=== PATIENT | female | born 1980 | race American Indian/Alaskan Native ===

== ENCOUNTER 2019-01-15 19:15 | Emergency (ER) | payer MEDICAID ==
[2019-01-15 19:30] VITALS: BMI 48.6
[2019-01-15 19:32] VITALS: BP 135/91; RESP 18; TEMP 98.5; O2SAT 100
[2019-01-15] MEDS ORDERED: Sodium Chloride 0.9% 1,000 ML IV STA (20:44)
[2019-01-15 21:18] LABS: BASO # 0.01 K/mm3 (0.0-2.0); BASO % 0.1 % (0.0-3.0); EOS % 0.1 % (1.5-5.0); HEMOGLOBIN 9.5 g/dL (12.0-16.0); LYMPH # 2.3 (1.2-3.4); LYMPH % 19.6 % (22.0-35.0); MEAN CELL VOLUME 60.6 fl (80.0-105.0); MEAN CORPUSCULAR HGB CONC 28.1 g/dl (31.0-37.0); MONO # 0.6 (0.1-0.6); MONO % 5.3 % (1.0-6.0); RBC 5.58 10^6/uL (3.5-6.1); RED CELL DISTRIBUTION WIDTH 21.3 % (11.5-14.5); URINE BILIRUBIN MODERATE (NEGATIVE); URINE BLOOD LARGE (NEGATIVE); URINE GLUCOSE (UA) NEGATIVE (NEGATIVE); URINE LEUKOCYTE ESTERASE TRACE Leu/uL (NEGATIVE); URINE PROTEIN 100 mg/dL (<30 mg/dL); WHITE BLOOD COUNT 11.6 10^3/uL (4.5-11.0)
[2019-01-15 21:23] LABS: URINE APPEARANCE CLOUDY (CLEAR)
[2019-01-15 21:28] LABS: ALB/GLOB RATIO 0.9 (1.1-1.8); ALBUMIN 4.4 g/dL (3.0-4.8); AST/SGOT 33 U/L (14-36); BLOOD UREA NITROGEN 18 mg/dL (7-21); CALCIUM 9.7 mg/dL (8.4-10.5); GFR NON-AFRICAN AMERICAN > 60; LIPASE 110 U/L (23-300)
[2019-01-15 21:29] LABS: URINE AMORPHOUS SEDIMENT MODERATE /hpf; URINE BACTERIA TRACE /hpf; URINE RBC TNTC /hpf (0-2)
[2019-01-15 21:39] LABS: TROPONIN I < 0.01 ng/mL
[2019-01-15 21:41] LABS: ALT/SGPT < 6 U/L (7-56)
--- NOTE | 2019-01-15 21:52 | ED PDOC ---
Arrival/HPI - General Chief Complaint: Abdominal Pain Time Seen by Provider: 01/15/19 20:07 Historian: Patient - History of Present Illness Narrative History of Present Illness (Text): 01/15/19 21:50 38-year-old female presents today with epigastric and upper abdominal pain that started 3 days ago. Patient is complaining of nausea vomiting and a sharp achy upper abdominal pain. No diarrhea or constipation. No back pain. No chest pain or shortness of breath. Patient denies fevers or chills. No dizziness or weakness. No urinary symptoms. No flank pain. No medications have been taken at home. No sick contacts. Past Medical History - Provider Review Nursing Documentation Reviewed: Yes - Travel History Have you recently traveled outside [place] w/in the past 3 mons?: No - Cardiac Hx Hypertension: Yes - Pulmonary Hx Asthma: Yes - Endocrine/Metabolic Hx Hyperthyroidism: Yes - Psychiatric Hx Substance Use: No - Surgical History Hx Section: Yes (2) Hx Cholecystectomy: Yes Hx Tonsillectomy: Yes Hx Tubal Ligation: Yes Family/Social History - Physician Review Nursing Documentation Reviewed: Yes Family/Social History: Unknown Family HX Smoking Status: Never Smoked Hx Alcohol Use: Yes Frequency of alcohol use: Socially Hx Substance Use: No Allergies/Home Meds Allergies/Adverse Reactions: Allergies Penicillins Allergy (Verified 01/15/19 19:29) RASH Review of Systems - Review of Systems Constitutional: absent: Fatigue, Fevers Respiratory: absent: SOB, Cough Cardiovascular: absent: Chest Pain, Palpitations Gastrointestinal: Abdominal Pain, Nausea, Vomiting. absent: Constipation, Diarrhea Genitourinary Female: absent: Dysuria, Frequency, Hematuria Musculoskeletal: absent: Arthralgias, Back Pain, Neck Pain Skin: absent: Rash, Pruritis Neurological: absent: Headache, Dizziness Psychiatric: absent: Anxiety, Depression, Suicidal Ideation Physical Exam Vital Signs Reviewed: Yes Vital Signs Temp Pulse Resp BP Pulse Ox 01/15/19 19:30 98.5 F 61 18 135/91 H 100 Temperature: Afebrile Blood Pressure: Hypertensive Pulse: Regular Respiratory Rate: Normal Appearance: Positive for: Well-Appearing, Non-Toxic, Comfortable Pain Distress: None Mental Status: Positive for: Alert and Oriented X 3 - Systems Exam Head: Present: Atraumatic Mouth: Present: Moist Mucous Membranes Neck: Present: Normal Range of Motion Respiratory/Chest: Present: Clear to Auscultation, Good Air Exchange. No: Respiratory Distress, Accessory Muscle Use Cardiovascular: Present: Regular Rate and Rhythm, Normal S1, S2. No: Murmurs Abdomen: Present: Tenderness (+ epigastric and left upper abd tenderness), Normal Bowel Sounds. No: Distention, Peritoneal Signs, Rebound, Guarding Back: Present: Normal Inspection. No: CVA Tenderness, Midline Tenderness, Paraspinal Tenderness Upper Extremity: Present: Normal ROM Neurological: Present: GCS=15, Speech Normal Skin: Present: Warm, Dry, Normal Color. No: Rashes Psychiatric: Present: Alert, Oriented x 3 Medical Decision Making ED Course and Treatment: 01/15/19 21:51 Patient is nontoxic well appearing with stable vital signs presenting with abdominal pain x 3 days CBC wbc;11.6 CMP k; 3.5 Lipase wnl Urinalysis + blood, + leukocytes, + wbcs, + bacteria CAT scan: FINDINGS: LUNG BASES: The lung bases appear clear. No pleural effusions are seen. LIVER: Unremarkable. GALLBLADDER AND BILE DUCTS: Status post cholecystectomy. No biliary ductal dilatation is evident. PANCREAS: Unremarkable. SPLEEN: Unremarkable. ADRENAL GLANDS: Unremarkable. KIDNEYS, URETERS, AND BLADDER: The kidneys appear within normal limits. There is no hydronephrosis or hydroureter. No urinary calculi are seen. The urinary bladder appears normal in size and configuration. STOMACH AND BOWEL: Unremarkable appearance of the stomach and bowel. No evidence of bowel obstruction. There is mild mucosal wall thickening of the small intestinal tract with fluid seen throughout its lumen thought compatible with diffuse enteritis. Infectious or inflammatory etiologies are thought most likely. No evidence suggesting colitis. APPENDIX: No evidence of acute appendicitis on CT examination. PERITONEUM: No free fluid. No free air. A small umbilical hernia is noted which contains fat. LYMPH NODES: No lymphadenopathy is evident. REPRODUCTIVE: Unremarkable as visualized. VASCULATURE: No evidence of abdominal aortic aneurysm. BONES: No aggressive appearing osseous lesion. No acute osseous pathology evident. IMPRESSION: 1. Evidence of diffuse enteritis. 2. Small umbilical hernia which contains fat. 3. Status post cholecystectomy. Electronically signed on January 16, 2019 12:00:52 AM EDT by: Satish King M.D., M.B.A., Certified By [employer] Trained MRI and CT Specialist Patient reassessment: pt feeling much better after protonix and zofran; no vomiting in er; denies abd pain. Discussed all results with patient in depth. Advised follow-up with a GI specialist within the next 2 days Advised taking Protonix once daily. Advised increasing fluids and slowly advancing her diet. Advised immediate return if symptoms worsen persist or if new concerning symptoms develop Patient verbalizes understanding of discharge instructions and need for immediate followup. All aspects of this case were discussed the attending of record. Impression: Abdominal pain nausea, vomiting, enteritis Protonix once daily macrobid; 1 tablet twice daily x 10 days. Follow-up with the GI doctor within the next 2 days Increase fluids Follow up with primary care physician within the next 2 days Return immediately if symptoms worsen persist or if new symptoms develop: High fevers, increasing pain, vomiting, diarrhea or any other concerning symptoms develop Reassessment Condition: Re-examined, Improved - Lab Interpretations Lab Results: Troponin I < 0.01 ng/mL 01/15/19 21:10 Total Bilirubin 0.7 mg/dL (0.2-1.3) 01/15/19 21:10 AST 33 U/L (14-36) 01/15/19 21:10 ALT < 6 U/L (7-56) L 01/15/19 21:10 Alkaline Phosphatase 115 U/L (38-126) 01/15/19 21:10 Total Protein 9.3 g/dL (5.8-8.3) H 01/15/19 21:10 Albumin 4.4 g/dL (3.0-4.8) 01/15/19 21:10 Globulin 4.8 gm/dL 01/15/19 21:10 Albumin/Globulin Ratio 0.9 (1.1-1.8) L 01/15/19 21:10 Lipase 110 U/L (23-300) 01/15/19 21:10 Urine Color liz (YELLOW) 01/15/19 21:10 Urine Appearance Cloudy (CLEAR) 01/15/19 21:10 Urine pH 6.0 (4.7-8.0) 01/15/19 21:10 Ur Specific [place] >= 1.030 (1.005-1.035) 01/15/19 21:10 Urine Protein 100 mg/dL (<30 mg/dL) H 01/15/19 21:10 Urine Glucose (UA) Negative mg/dL (NEGATIVE) 01/15/19 21:10 Urine Ketones 40 mg/dL (NEGATIVE) H 01/15/19 21:10 Urine Blood Large (NEGATIVE) H 01/15/19 21:10 Urine Nitrate Positive (NEGATIVE) H 01/15/19 21:10 Urine Bilirubin Moderate (NEGATIVE) H 01/15/19 21:10 Urine Urobilinogen 1.0 E.U./dL (<1 E.U./dL) H 01/15/19 21:10 Ur Leukocyte Esterase Trace Melissa/uL (NEGATIVE) H 01/15/19 21:10 Urine RBC Tntc /hpf (0-2) H 01/15/19 21:10 Urine WBC 5 - 10 /hpf (0-6) H 01/15/19 21:10 Ur Epithelial Cells 4 - 5 /hpf (0-5) 01/15/19 21:10 Amorphous Sediment Moderate /hpf (NONE) 01/15/19 21:10 Urine Bacteria Trace /hpf (NONE) 01/15/19 21:10 - RAD Interpretation Radiology Orders: 01/15/19 20:45 ABD & PELVIS IV CONTRAST ONLY [CT] Stat - Medication Orders Current Medication Orders: Discontinued Medications Sodium Chloride (Sodium Chloride 0.9%) 1,000 mls @ 999 mls/hr IV .Q1H1M STA Stop: 01/15/19 21:44 Last Admin: 01/15/19 21:30 Dose: 999 mls/hr eMAR Start Stop Document 01/15/19 21:30 SS (Rec: 01/15/19 21:30 SS [id number]) Intravenous Solution Start Date 01/15/19 Start Time 21:30 End Date 01/15/19 End time 22:30 Total Infusion Time 60 Ondansetron HCl (Zofran Inj) 4 mg IVP STAT STA Stop: 01/15/19 20:45 Last Admin: 01/15/19 21:30 Dose: 4 mg IVP Administration Document 01/15/19 21:30 SS (Rec: 01/15/19 21:30 SS [id number]) Charges for Administration # of IVP Administrations 1 Pantoprazole Sodium (Protonix Inj) 40 mg IVP STAT STA Stop: 01/15/19 20:45 Last Admin: 01/15/19 21:30 Dose: 40 mg IVP Administration Document 01/15/19 21:30 SS (Rec: 01/15/19 21:30 SS [id number]) Charges for Administration # of IVP Administrations 1 Disposition/Present on Arrival - Present on Arrival Any Indicators Present on Arrival: No History of DVT/PE: No History of Uncontrolled Diabetes: No Urinary Catheter: No History of Decub. Ulcer: No History Surgical Site Infection Following: None - Disposition Have Diagnosis and Disposition been Completed?: Yes Diagnosis: Abdominal pain, Urinary tract infection, Enteritis, Nausea & vomiting Disposition: HOME/ ROUTINE Disposition Time: 00:01 Patient Plan: Discharge Condition: GOOD Discharge Instructions (ExitCare): Urinary Tract Infection, Adult (DC), Urinary Tract Infections in Adults, Nausea and Vomiting, Adult (DC), Acute Abdomen (Belly Pain), Adult (DC) Additional Instructions: Protonix once daily macrobid; 1 tablet twice daily x 10 days. Follow-up with the GI doctor within the next 2 days Increase fluids Follow up with primary care physician within the next 2 days Return immediately if symptoms worsen persist or if new symptoms develop: High fevers, increasing pain, vomiting, diarrhea or any other concerning symptoms develop Prescriptions: Nitrofurantoin Macrocrystals [Macrobid] 100 mg PO BID #20 cap Pantoprazole [Protonix] 40 mg PO DAILY #20 tab Referrals: Carlyn Mckeon MD [Primary Care Provider] - Follow up with primary Hilda Saravia MD [Staff Provider] - Follow up with primary Forms: Zaranga (Polish)
[2019-01-16 02:44] VITALS: PULSE 66
--- NOTE | 2019-01-16 09:14 | CT ---
Date of service: 01/15/2019 PROCEDURE: CT Abdomen and Pelvis with contrast HISTORY: abd pain COMPARISON: None available. TECHNIQUE: Contrast dose: 140 mL Omnipaque 350 IV Radiation dose: Total exam DLP = 1073.6 mGy-cm. This CT exam was performed using one or more of the following dose reduction techniques: Automated exposure control, adjustment of the mA and/or kV according to patient size, and/or use of iterative reconstruction technique. FINDINGS: LOWER THORAX: No visible consolidation, pleural effusion, or pneumothorax. LIVER: Hypoattenuation of the liver compatible with hepatic steatosis. GALLBLADDER AND BILE DUCTS: Cholecystectomy. PANCREAS: Unremarkable. SPLEEN: Unremarkable. ADRENALS: Unremarkable. KIDNEYS AND URETERS: The kidneys enhance symmetrically. No hydronephrosis or obstructing calculus identified. VASCULATURE: No aortic aneurysm. No atherosclerotic calcification or mural plaque present. BOWEL: Stomach is nondistended. Lack of oral contrast limits evaluation for bowel pathology. Bowel loops appear within normal limits of caliber without evidence of obstruction. APPENDIX: The appendix appears within normal limits of caliber. No secondary signs of acute appendicitis. PERITONEUM: No significant free fluid. No definite free air. LYMPH NODES: Subcentimeter nonspecific bilateral inguinal adenopathy. Scattered sub cm mesenteric lymph nodes, nonspecific. No bulky adenopathy identified. BLADDER: Unremarkable. REPRODUCTIVE: The uterus is present. BONES: No acute osseous abnormality is detected. OTHER FINDINGS: Small fat containing umbilical hernia. IMPRESSION: No acute findings identified. Incidental findings as above. Preliminary impression was provided by [employer].
== END 2019-01-16 02:44 | disposition home or self-care (01) ==
LOC: ED 19:15
DX: K52.9 Noninfective gastroenteritis and colitis, unspecified (principal); N39.0 Urinary tract infection, site not specified; I10 Essential (primary) hypertension; E05.90 Thyrotoxicosis, unspecified without thyrotoxic crisis or storm; Z90.49 Acquired absence of other specified parts of digestive tract
CPT/HCPCS: 74177; 80053; 81001; 81025; 82550; 83615; 83690; 84484; 85025; 87086; 96361; 96374; 96375; 99283; C9113; J2405; J7030; Q9967